=== PATIENT | female | born 1955 | race Caucasian/White ===

== ENCOUNTER 2020-05-23 13:27 | Emergency (ER) | payer OTHER ==
--- NOTE | 2020-05-23 13:42 | EDM.PDOC ---
ED HPI GENERAL MEDICAL PROBLEM - General Chief Complaint: General Stated Complaint: LAST COUPLE HRS PAIN IN LEFT SIDE JAW Time Seen by Provider: 05/23/20 13:40 Source of Information: Reports: Patient, Family, RN. Denies: Old Records History Limitations: Reports: Other (no old records) - History of Present Illness INITIAL COMMENTS - FREE TEXT/NARRATIVE: 64 yo female with AODM presents after a spell of brief anterior chest flush/warmth and at the same time L jaw pain that persisted longer. No SOB, nausea, or diaphoresis. No hx of CAD. No fever. No calf pain or LE edema. Was riding in a car at onset. Is from the [facility]. Onset: Today, Sudden Onset Date: 05/23/20 Duration: Minutes: Location: Reports: Face (L jaw), Chest (anterior) Quality: Reports: Other (warmth, flush) Severity: Moderate Improves with: Reports: Other (time) Worsens with: Reports: Other (unknown) Context: Reports: Other (See HPI) Associated Symptoms: Reports: Chest Pain. 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: Reports: Other (see below) (none) Left Jaw Pain Score (Numeric/FACES): 2 - Related Data Allergies Allergy/AdvReac Type Severity Reaction Status Date / Time Penicillins Allergy Hives Verified 05/23/20 13:38 morphine AdvReac Nausea Verified 05/23/20 13:38 Home Meds: Home Meds Aspirin 81 mg PO BEDTIME 05/23/20 [History] Fish Oil/DHA/EPA [Fish Oil 1,200 MG] 1 tab PO DAILY 05/23/20 [History] Multivitamin [Multivitamins] 1 tab PO DAILY 05/23/20 [History] Sertraline [Zoloft] 75 mg PO DAILY 05/23/20 [History] atorvaSTATin [Lipitor] 10 mg PO BEDTIME 05/23/20 [History] metFORMIN HCl [Metformin HCl ER] 500 mg PO BID 05/23/20 [History] ED ROS GENERAL - Review of Systems Review Of Systems: See Below Constitutional: Reports: No Symptoms HEENT: Reports: Other (L jaw pain) Respiratory: Reports: No Symptoms Cardiovascular: Reports: Chest Pain (warm flush) Endocrine: Reports: No Symptoms GI/Abdominal: Reports: No Symptoms : Reports: No Symptoms Musculoskeletal: Reports: No Symptoms Skin: Reports: No Symptoms Neurological: Reports: No Symptoms Psychiatric: Reports: No Symptoms ED EXAM, GENERAL - Physical Exam Exam: See Below Exam Limited By: No Limitations General Appearance: Alert, WD/WN, No Apparent Distress, Obese Eye Exam: Bilateral Eye: Normal Inspection Ears: Normal External Exam, Normal Canal, Hearing Grossly Normal Ear Exam: Bilateral Ear: Auricle Normal, Canal Normal, Other (No TMJ pain, L ear cerumen impaction) Nose: Normal Inspection, No Blood Throat/Mouth: Normal Inspection, Normal Lips, Normal Oropharynx, Normal Voice, No Airway Compromise Head: Atraumatic, Normocephalic Neck: Normal Inspection Respiratory/Chest: No Respiratory Distress, Lungs Clear, Normal Breath Sounds, No Accessory Muscle Use, Chest Non-Tender Cardiovascular: Regular Rate, Rhythm, No Edema GI/Abdominal: Normal Bowel Sounds, Soft, Non-Tender, No Distention Back Exam: Normal Inspection. No: CVA Tenderness (R), CVA Tenderness (L) Extremities: Normal Inspection, Normal Range of Motion, Non-Tender, No Pedal Jonathon ma Neurological: Alert, Oriented, CN II-XII Intact, Normal Cognition, No Motor/Sensory Deficits Psychiatric: Normal Affect, Normal Mood Skin Exam: Warm, Dry, Intact, Normal Color, No Rash EKG INTERPRETATION EKG Date: 05/23/20 Time: 13:35 Rhythm: NSR Rate (Beats/Min): 74 [place]: Normal P-Wave: Present QRS: Normal ST-T: Normal QT: Normal Comparison: NA - No Prior EKG Course - Vital Signs Last Recorded V/S: Last Vital Signs Temp 36.7 C 05/23/20 13:36 Pulse 74 05/23/20 13:36 Resp 18 05/23/20 13:36 BP 158/71 H 05/23/20 13:36 Pulse Ox 94 L 05/23/20 13:36 - Orders/Labs/Meds Orders: Active Orders 24 hr Category Date Time Status Cardiac Monitoring [RC] .As Directed Care 05/23/20 13:54 Active EKG Documentation Completion [RC] ASDIRECTED Care 05/23/20 13:54 Active UA W/MICROSCOPIC [URIN] Stat Lab 05/23/20 13:29 Ordered EKG 12 Lead [EK] Routine Ther 05/23/20 13:54 Ordered Labs: Laboratory Tests 05/23/20 Range/Units 14:11 Troponin I < 0.017 (0.000-0.056) ng/mL - Re-Assessments/Exams Free Text/Narrative Re-Assessment/Exam: 05/23/20 14:11 No return of any of her sx's with walking the ER loop. Departure - Departure Time of Disposition: 14:45 Disposition: Home, Self-Care 01 Condition: Good Clinical Impression: Left ear impacted cerumen, Nonspecific chest pain - Discharge Information *PRESCRIPTION DRUG MONITORING PROGRAM REVIEWED*: Not Applicable *COPY OF PRESCRIPTION DRUG MONITORING REPORT IN PATIENT KATE: Not Applicable Instructions: Nonspecific Chest Pain, Adult, [id number] Referrals: PCP,None [Primary Care Provider] - Forms: ED Department Discharge Additional Instructions: Try Debrox for wax removal from your ears, this is over the counter. Continue your usual medications. Discuss getting a more in depth cardiac work up with your provider. Return as needed. Sepsis Event Note (ED) - Evaluation Sepsis Screening Result: No Definite Risk - Focused Exam Vital Signs: Vital Signs Temp Pulse Resp BP Pulse Ox 05/23/20 13:36 36.7 C 74 18 158/71 H 94 L - My Orders Last 24 Hours: My Active Orders 05/23/20 13:29 UA W/MICROSCOPIC [URIN] Stat 05/23/20 13:54 Cardiac Monitoring [RC] .As Directed EKG Documentation Completion [RC] ASDIRECTED EKG 12 Lead [EK] Routine - Assessment/Plan Last 24 Hours: My Active Orders 05/23/20 13:29 UA W/MICROSCOPIC [URIN] Stat 05/23/20 13:54 Cardiac Monitoring [RC] .As Directed EKG Documentation Completion [RC] ASDIRECTED EKG 12 Lead [EK] Routine
== END 2020-05-23 15:05 | disposition home or self-care (01) ==
LOC: JP.ED 13:27
DX: R07.89 Other chest pain (principal); H61.22 Impacted cerumen, left ear; Z88.0 Allergy status to penicillin; Z88.5 Allergy status to narcotic agent
CPT/HCPCS: 36415; 84484; 93005; 93010; 99283; 99285-25